=== PATIENT | male | born 1950 ===

== ENCOUNTER 2022-08-14 09:59 | Observation (INO) ==
[~2022-08-14 09:59] MED LIST: Buffered Lidocaine 1% SYRIN 1 ml INTRADERM ONE; Lactated Ringers 1000 ml BAG 1,000 ML IV SCH; ROPIVACAINE 5 MG/ML 30 ML BTL (0.5%) ONE
[2022-08-14] MEDS ORDERED: Clindamycin 900 MG/D5W BAG 900 MG/50 ML BAG IVPB ONE (10:34)
[2022-08-14] MEDS ORDERED: Naloxone 0.4 mg VIAL 0.4 mg/ml 1 ml VIAL IV PRN (11:17)
[2022-08-14] MEDS ORDERED: HYDROmorphone 1 MG/1 ML SYRINGE IV PRN (11:17)
[2022-08-14 11:19] LABS: INR 1.08 (0.88-1.18)
[2022-08-14] MEDS ORDERED: Ropivacaine 5 MG/ML 20 ML VIAL 0.5% (100 MG) ONE (11:19)
[2022-08-14] MEDS ORDERED: Midazolam 2 mg/2 ml VIAL 1 mg/ml 2 ml VIAL (2 mg) ONE ×2 (11:25→12:10)
[2022-08-14] MEDS ORDERED: Bupivacaine-MPF SPINAL 7.5 MG/ML - 2ML AMP ONE (12:26)
[2022-08-14] MEDS ORDERED: Bupivacaine 0.5% 50 ML MDV VIAL ONE (12:26)
[2022-08-14] MEDS ORDERED: Bupivacaine 0.5% W/EPI SDV 10 ML VIAL INJ ONE (12:26)
[2022-08-14] MEDS ORDERED: Lactulose 30 ml UDC PO PRN (13:23)
[2022-08-14] MEDS ORDERED: Ondansetron ODT 4 mg TAB 4 MG TAB PO PRN (13:23)
[2022-08-14] MEDS ORDERED: Ondansetron 4 mg VIAL 2 MG/ML 2 ml VIAL IV PRN (13:23)
[2022-08-14] MEDS ORDERED: Morphine 2 MG/ML SYRINGE IV PRN (13:23)
[2022-08-14] MEDS ORDERED: Magnesium Hydroxide LIQ 30 ML UDC PO PRN (13:23)
[2022-08-14] MEDS ORDERED: Ondansetron 4 mg VIAL 2 MG/ML 2 ml VIAL ONE (14:34)
[2022-08-14] MEDS: Lactated Ringers 1000 ml BAG 1,000 ML IV SCH (16:50)
[2022-08-14] MEDS: Clindamycin 600 MG/D5W BAG 600 MG/50 ML BAG IV SCH (21:38)
[2022-08-14] MEDS: Magnesium Hydroxide LIQ 30 ML UDC PO SCH (21:40)
[2022-08-15] MEDS: Lactated Ringers 1000 ml BAG 1,000 ML IV SCH (03:38)
[2022-08-15] MEDS: Clindamycin 600 MG/D5W BAG 600 MG/50 ML BAG IV SCH ×2 (04:48→11:27)
[2022-08-15 06:07] LABS: Hematocrit 32 % (42-52); Hemoglobin 10.9 g/dL (14.0-18.0); Mean Platelet Volume 8.8 fL (7.4-10.4); Platelet Count 196 10^3/uL (150-450)
[2022-08-15 06:25] LABS: Calcium 8.8 mg/dL (8.6-10.3); Potassium 4.6 mmol/L (3.5-5.0)
[2022-08-15] MEDS: Magnesium Hydroxide LIQ 30 ML UDC PO SCH (07:32)
[2022-08-15] MEDS ORDERED: Vitamin THERAPEUTIC TAB PO SCH (09:00)
[2022-08-15 11:13] VITALS: BP 156/77
== END 2022-08-15 12:48 | disposition home or self-care (01) ==
LOC: SSU 09:59 → OR 09:59
PROVIDERS: ADMIT Orthopaedic Surgery Adult Reconstructive Orthopaedic Surgery; ATTEND Orthopaedic Surgery Adult Reconstructive Orthopaedic Surgery

== ENCOUNTER 2023-07-23 07:49 | Observation (INO) ==
[~2023-07-23 07:49] MED LIST changes: -Buffered Lidocaine 1% SYRIN 1 ml INTRADERM ONE; -Lactated Ringers 1000 ml BAG 1,000 ML IV SCH; +Naloxone 0.4 mg VIAL 0.4 mg/ml 1 ml VIAL IV PRN; -ROPIVACAINE 5 MG/ML 30 ML BTL (0.5%) ONE; +fentaNYL 100 mcg/2 ml 50 MCG/ML VIAL IV PRN
[2023-07-23] MEDS ORDERED: ceFAZolin 2 GM PREMIX 2 GM/50 ML BAG ONE (08:27)
[2023-07-23] MEDS ORDERED: Tranexamic Acid 1 GM/100ML BAG 2,000 MG/200 ML BAG IV ONE (08:27)
[2023-07-23] MEDS ORDERED: Propofol 10 MG/ML 20 ML BTL ONE (08:46)
[2023-07-23] MEDS ORDERED: Lidocaine 2% PF 5 ML VIAL ONE (08:46)
[2023-07-23] MEDS ORDERED: Midazolam 2 mg/2 ml VIAL 1 mg/ml 2 ml VIAL (2 mg) ONE ×2 (08:46→10:29)
[2023-07-23] MEDS ORDERED: fentaNYL 100 mcg/2 ml 50 MCG/ML VIAL ONE (08:46)
[2023-07-23 08:55] LABS: Rapid COVID-19 Molecular Undetected (Undetected)
[2023-07-23] MEDS: Buffered Lidocaine 1% SYRIN 1 ml INTRADERM ONE (08:57)
[2023-07-23] MEDS: Lactated Ringers 1000 ml BAG 1,000 ML IV SCH ×2 (08:58→15:30)
[2023-07-23] MEDS ORDERED: ROPIVACAINE 5 MG/ML 30 ML BTL (0.5%) ONE ×2 (10:29→10:40)
[2023-07-23] MEDS ORDERED: Lactulose 30 ml UDC PO PRN (13:12)
[2023-07-23] MEDS ORDERED: Ondansetron ODT 4 mg TAB 4 MG TAB PO PRN (13:12)
[2023-07-23] MEDS ORDERED: Magnesium Hydroxide LIQ 30 ML UDC PO PRN (13:12)
[2023-07-23] MEDS ORDERED: Morphine 2 MG/ML SYRINGE IV PRN (13:12)
[2023-07-23] MEDS ORDERED: Phenylephrine 40 mcg/mL 10mL (400mcg) SYRINGE ONE ×2 (13:38→13:42)
[2023-07-23] MEDS ORDERED: Ondansetron 4 mg VIAL 2 MG/ML 2 ml VIAL ONE (14:37)
[2023-07-23] MEDS: Ondansetron 4 mg VIAL 2 MG/ML 2 ml VIAL IV PRN (14:41)
[2023-07-23 15:35] LABS: Calcium 9.1 mg/dL (8.6-10.3); Creatinine, Serum 1.05 mg/dL (0.67-1.17); Magnesium 1.9 mg/dL (1.9-2.7); Potassium 4.1 mmol/L (3.5-5.0)
[2023-07-23] MEDS ORDERED: EPINEPHrine Anaphylaxis SYR CERTADOSE SYR KIT IM PRN ×2 (16:16→16:20)
[2023-07-23] MEDS: ceFAZolin 1 GM ADVAN 1 GM in NS 0.9% 50 ML 50 ML IVPB SCH (19:24)
[2023-07-23] MEDS: Magnesium Hydroxide LIQ 30 ML UDC PO SCH (20:51)
[2023-07-23] MEDS: Fluticasone NASAL SPRAY 50MCG 16 gm SPRAY BTL INTRANASAL SCH (20:53)
[2023-07-24 06:14] LABS: Hematocrit 33.2 % (38-53); Hemoglobin 11.5 g/dL (13.2-16.3); Mean Platelet Volume 8.5 fL (7.5-11.2); Platelet Count 199 10^3/uL (150-450)
[2023-07-24 06:40] LABS: Calcium 8.9 mg/dL (8.6-10.3); Creatinine, Serum 1.15 mg/dL (0.67-1.17); Potassium 4.2 mmol/L (3.5-5.0); eGFR CKD-EPI 67.2 (>60)
[2023-07-24] MEDS: Vitamin THERAPEUTIC TAB PO SCH (09:46)
[2023-07-24 10:09] VITALS: BP 155/87
== END 2023-07-24 13:50 | disposition home or self-care (01) ==
LOC: OR 07:49 → SSU 07:49
PROVIDERS: ADMIT Orthopaedic Surgery Adult Reconstructive Orthopaedic Surgery; ATTEND Orthopaedic Surgery Adult Reconstructive Orthopaedic Surgery